=== PATIENT | female | born 1980 ===

== ENCOUNTER → 2018-04-11 11:54 | Outpatient (CLI) | payer OTHER | END | disposition home or self-care (01) | LOC: LAB 11:54 | DX: R05 Cough (principal); J11.1 Influenza due to unidentified influenza virus with other respiratory manifestations ==

== ENCOUNTER 2020-04-15 19:10 | Emergency (ER) | payer OTHER ==
[~2020-04-15] VITALS: Ht 157.5 cm; Wt 62.6 kg
[2020-04-15] MEDS ORDERED: RISPERDAL0.5 MG PO (19:43)
[2020-04-15] MEDS ORDERED: AMPHETAMINE SAL30 M1 (19:43)
[2020-04-15] MEDS ORDERED: CLONAZEPAM0.5 MG PO (19:44)
[2020-04-15] MEDS ORDERED: ZOLPIDEM TARTRA10 MG PO (19:44)
[2020-04-15] MEDS ORDERED: DICLOFENAC SODI75 MG PO (20:13)
[2020-04-15] MEDS ORDERED: CIPRO500 MG PO (20:13)
== END 2020-04-15 21:49 | disposition home or self-care (01) ==
LOC: ER 19:10
DX: S61.452A Open bite of left hand, initial encounter (principal); S61.451A Open bite of right hand, initial encounter; W54.0XXA Bitten by dog, initial encounter; Y93.89 Activity, other specified; Y92.89 Other specified places as the place of occurrence of the external cause; Y99.8 Other external cause status

== ENCOUNTER 2020-04-19 11:08 | Outpatient (CLI) | payer OTHER ==
[~2020-04-19 11:08] MED LIST: AMPHETAMINE SAL30 M1; CIPRO500 MG PO; CLONAZEPAM0.5 MG PO; DICLOFENAC SODI75 MG PO; RISPERDAL0.5 MG PO; ZOLPIDEM TARTRA10 MG PO
== END 2020-04-19 11:20 | disposition home or self-care (01) ==
LOC: RAD 11:08
PROVIDERS: ATTEND Orthopaedic Surgery
DX: W54.0XXA Bitten by dog, initial encounter (principal)

== ENCOUNTER 2024-09-06 14:06 | Outpatient (CLI) | payer OTHER | END 2024-09-06 14:18 | disposition home or self-care (01) | LOC: MAMO-SONO 14:06 | PROVIDERS: ATTEND Surgery | DX: N60.11 Diffuse cystic mastopathy of right breast (principal); N60.12 Diffuse cystic mastopathy of left breast ==